=== PATIENT | male | born 1955 | race Caucasian/White ===

== ENCOUNTER → 2020-05-30 | Outpatient (CLI) | payer MEDICARE, BC | LOC: LAB 14:45 → LAB SHORT 14:45 → PLD 14:45 | DX: D22.5 Melanocytic nevi of trunk (principal) | CPT/HCPCS: 88342 ==

== ENCOUNTER 2025-02-16 05:40 | Day surgery (SDC) | payer MEDICARE, OTHER ==
[~2025-02-16] VITALS: Ht 177.8 cm; Wt 72.0 kg
[2025-02-16] VITALS (13 sets, daily range): BP systolic 90–147; BP diastolic 57–97
[2025-02-16] MEDS ORDERED: ZYRTEC10 M2 PO (06:22)
[2025-02-16] MEDS ORDERED: CENTRUM SILVER1 EAC2 PO (06:23)
[2025-02-16] MEDS ORDERED: LUTEIN6 MG PO (06:24)
[2025-02-16] MEDS ORDERED: MELA3 PO (06:24)
[2025-02-16] MEDS ORDERED: NS 1,000 ML IV ONE (06:41)
[2025-02-16] MEDS ORDERED: Benzocaine Oral Spray 0.5ML UD ONE (06:52)
--- NOTE | 2025-02-16 07:23 | NUR ---
ASSUMED CARE FROM ANESTHESIA POST TERESA. PT IS AWAKE AND VERBALIZING WELL.
--- NOTE | 2025-02-16 07:53 | NUR ---
PT AND VERBALIZED UNDERSTANDING OF WRITTEN AND VERBAL D/C INST. IV REMOVED. PT WILL BE TAKEN OUT OF THE DEPARTMENT VIA W/C.
[2025-02-16] MEDS ORDERED: Lidocaine HCl 2% 20 MG/ML 5ML SYR IV ONE (15:05)
[2025-02-16] MEDS ORDERED: Propofol 10mg/ml 20 ml Vial (Procedural) IV ONE (15:06)
== END 2025-02-16 23:00 | disposition home or self-care (01) ==
LOC: MHTC 05:40 → ORSCMMR 05:40 → ORD 07:00 → ORSCMMR 23:00
DX: I34.1 Nonrheumatic mitral (valve) prolapse (principal); Q23.3 Congenital mitral insufficiency; Q24.8 Other specified congenital malformations of heart; E78.5 Hyperlipidemia, unspecified; Z79.899 Other long term (current) drug therapy
CPT/HCPCS: 93312; 93325; A9270; J2003; J2704; J7030